=== PATIENT | male | born 1975 ===

== ENCOUNTER 2019-04-02 05:17 | Day surgery (SDC) | payer OTHER ==
[~2019-04-02] VITALS: Ht 167.6 cm; Wt 95.3 kg
[2019-04-02] VITALS (13 sets, daily range): BP systolic 93–134; BP diastolic 56–92
[2019-04-02] MEDS ORDERED: ENALAPRIL MALEA20 MG ORAL (06:18)
[2019-04-02] MEDS ORDERED: METFORMIN HCL1000 M1 ORAL (06:18)
[2019-04-02] MEDS ORDERED: ceFAZolin sod 1 GM in NS 55 ML IVPB ONE (07:00)
[2019-04-02] MEDS ORDERED: Bupivacaine w/Epi 0.5% 30ml Vial INJ ONE (07:15)
[2019-04-02] MEDS ORDERED: LR 1000ml 1,000 ML IVLG SCH (07:20)
--- NOTE | 2019-04-02 07:20 | Pre-Procedure Note/Attestation ---
Pre-Procedure Note/Attestation Complete Prior to Procedure Planned Procedure: right Procedure Narrative: Arthroscopy, Intr-Articular Surgery Right Knee Indications for Procedure Pre-Operative Diagnosis: Torn Medial Meniscus Attestation I attest that I discussed the nature of the procedure; its benefits; risks and complications; and alternatives (and the risks and benefits of such alternatives ), prior to the procedure, with the patient (or the patient's legal media sales representative). I attest that, if there was a reasonable possibility of needing a blood transfusion, the patient (or the patient's legal media sales representative) was given the [facility] standardized written summary, pursuant to the [place]un[place] Blood Safety Act ([place] Health and Safety Code # 1645, as amended). I attest that I re-evaluated the patient just prior to the surgery and that there has been no change in the patient's H&P, except as documented below: ELIZABETH LOUIE Apr 02, 2019 07:20
[2019-04-02] MEDS ORDERED: Sterile Water Irrig 1000ml IRRIG ONE (07:23)
[2019-04-02] MEDS ORDERED: Lidocaine 1% MPF 10mg/ml 5ml ONE (07:26)
[2019-04-02] MEDS ORDERED: fentaNYL 100 mcg/2 mL IV ONE (07:26)
[2019-04-02] MEDS ORDERED: Sodium Chloride 10ml vial INJ ONE (07:26)
[2019-04-02] MEDS ORDERED: Propofol 200mg/20ml IV ONE (07:26)
--- NOTE | 2019-04-02 07:26 | Anethesia Preoperative Eval ---
Anesthesia Pre-op PMH/ROS General Date of Evaluation: Apr 02, 2019 Time of Evaluation: 07:23 Anesthesiologist: Eugene ASA Score: ASA 3 Mallampati Score Class I : Soft palate, uvula, fauces, pillars visible Class II: Soft palate, uvula, fauces visible Class III: Soft palate, base of uvula visible Class IV: Only hard plate visible Mallampati Classification: Class III Surgeon: Mary Diagnosis: R Knee Pain Surgical Procedure: R Knee Athroscpy Family History: no anesthesia problems Allergies: Coded Allergies: No Known Allergies (Unverified , 04/01/19) Medications: see eMAR Patient NPO?: Yes Past Medical History Cardiovascular: Reports: HTN Endocrine: Reports: DM Other: obesity - BMI 35 Anesthesia Pre-op Phys. Exam Physician Exam Last Vital Signs Date Time Temp Pulse Resp B/P (MAP) Pulse Ox O2 Delivery O2 Flow Rate FiO2 04/02/19 06:06 Room Air 04/02/19 06:00 97.2 69 20 134/92 100 Constitutional: NAD Neurologic: CN 2-12 intact Cardiovascular: RRR Respiratory: CTA Gastrointestinal: S/NT/ND Airway Exam Mallampati Score: Class III MO: limited ROM: limited Teeth: intact Anesthesia Pre-op A/P Risk Assessment & Plan Assessment: ASA 3 Plan: GA, SED Status Change Before Surgery: No Pre-Antibiotics Dru Grams Ancef IV Given Within 1 Hr of Incision: Yes Time Given: 07:36 Steve Knight MD Apr 02, 2019 07:26
[2019-04-02] MEDS ORDERED: Acetaminophen (Non formulary) 100 ML IV ONE (07:30)
[2019-04-02] MEDS ORDERED: fentaNYL 100 mcg/2 mL IV PRN (07:30)
[2019-04-02] MEDS ORDERED: Hydromorphone 0.5mg/0.5ml inj IVP PRN (07:30)
[2019-04-02] MEDS ORDERED: HYDROcodone/Acetamin 7.5/325 tab ORAL PRN (07:30)
[2019-04-02] MEDS ORDERED: Midazolam 2mg/2ml Inj IVP PRN (07:30)
[2019-04-02] MEDS ORDERED: Meperidine 50mg/ml Inj(FOR RIGORS ONLY) IVP PRN (07:30)
[2019-04-02] MEDS ORDERED: Ketorolac 30mg Inj IV PRN ×2 (07:30)
[2019-04-02] MEDS ORDERED: DiphenhydrAMINE 50mg/ml Inj IVP PRN (07:30)
[2019-04-02] MEDS ORDERED: HYDROcodone/Acetamin 5/325 tab ORAL PRN (07:30)
[2019-04-02] MEDS ORDERED: oxyCODONE HCL/Acetaminophen 5/325mg ORAL PRN (07:30)
[2019-04-02] MEDS ORDERED: Labetalol 5mg/ml 20ml vial IV PRN (07:30)
[2019-04-02] MEDS ORDERED: LORazepam Inj 2mg/ml 1ml IV PRN (07:30)
[2019-04-02] MEDS ORDERED: Metoclopramide 10mg/2ml Inj IVP PRN (07:30)
[2019-04-02] MEDS ORDERED: Atropine Sulfate 0.4mg/ml inj IVP PRN (07:30)
[2019-04-02] MEDS ORDERED: NS Irrig 4000ml IRRIG ONE ×4 (07:54→08:23)
--- NOTE | 2019-04-02 08:45 | Brief Operative Note ---
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
--- NOTE | 2019-04-02 08:47 | Immediate Post-Op Evaluation ---
Immediate Post-Op Evalulation Immediate Post-Op Evalulation Procedure: R Knee Arthroscopy Date of Evaluation: Apr 02, 2019 Time of Evaluation: 08:59 IV Fluids: 800 LR Blood Products: 0 Estimated Blood Loss: 10 Urinary Output: 0 Blood Pressure Systolic: 102 Blood Pressure Diastolic: 64 Pulse Rate: 79 Respiratory Rate: 16 O2 Sat by Pulse Oximetry: 99 Temperature (Fahrenheit): 97.6 Pain Score (1-10): 2 Nausea: No Vomiting: No Complications 0 Patient Status: awake, reacts, patent, extubated, none Hydration Status: adequate Dru Grams Ancef IV Given Within 1 Hr of Incision: Yes Time Given: 07:36 Steve Knight MD Apr 02, 2019 08:47
--- NOTE | 2019-04-02 08:49 | 48 Hour Post Anesthesia Eval ---
Post Anesthesia Evaluation Procedure: R Knee Arthroscopy Date of Evaluation: Apr 02, 2019 Time of Evaluation: 11:06 Blood Pressure Systolic: 147 0: 89 Pulse Rate: 72 Respiratory Rate: 18 Temperature (Fahrenheit): 98.2 O2 Sat by Pulse Oximetry: 98 Airway: patent Nausea: No Vomiting: No Pain Intensity: 2 Hydration Status: adequate Cardiopulmonary Status: Stable Mental Status/LOC: patient returned to baseline Follow-up Care/Observations: 0 Post-Anesthesia Complications: 0 Follow-up care needed: ready to discharge Steve Knight MD Apr 02, 2019 08:49
--- NOTE | 2019-04-02 16:30 | Operative Note - Dictated ---
DATE OF OPERATION: 04/02/2019 SURGEON: Dwayne Hernandez M.D. ANESTHESIOLOGIST: Steve Knight M.D. PREOPERATIVE DIAGNOSIS: Medial meniscus tear, right knee, recurrent. POSTOPERATIVE DIAGNOSES: Multiplanar complex tear, posterior horn, medial meniscus, right knee, grade 1 chondromalacia medial femoral condyle, medial tibial plateau right knee. OPERATION: 1. Arthroscopy, arthroscopic partial medial meniscectomy. 2. Chondroplasty, medial femoral condyle and medial tibial plateau right knee. DESCRIPTION OF PROCEDURE: The patient was brought to the operating room and placed comfortably in the supine position on the operating table. After satisfactory induction of general endotracheal anesthesia, a tourniquet was placed at the proximal aspect of the right lower extremity. The extremity was then prepped and draped in the usual sterile fashion. Standard 1-cm vertical oblique arthroscopy portals were placed 1 cm medial and 1 cm lateral to the patellar tendon, 1 cm above the respective joint lines. A 60 mL of sterile normal saline was introduced into the knee and the medial suprapatellar outflow cannula was introduced. The arthroscope was placed through the lateral portal. The patellofemoral examination revealed normal tracking with no evidence of any medial synovial plica or loose body. Examination of the medial compartment revealed grade 1 chondromalacic changes at the medial femoral condyle and medial tibial plateau with a significant portion of the posterior horn and mid body of the medial meniscus having been previously excised. A complex multiplanar tear involving the peripheral remnant of the medial meniscus was noted at the junction of the posterior horn and mid zone, and was excised with a combination of straight and curved basket forceps. The resection was performed in such a way as to create a smooth transition to the remaining intact mid zone and entirely intact anterior horn of the meniscus. At the conclusion of the resection, the remaining meniscus was vigorously probed with no portion found to be loose or dislocatable into the joint. The compartment was then cleared of all meniscal debris using a motorized shaver and suction. A minimal chondroplasty was performed at the medial femoral condyle and medial tibial plateau, with no attempts to go deeper, for these grade 1 changes. The anterior and posterior cruciate ligaments were intact. The lateral tibial plateau, lateral femoral condyle, and lateral meniscus were without defects. No loose bodies were noted in the lateral gutter. The knee was thoroughly irrigated to remove any remaining meniscal debris. A tourniquet was not necessary for this procedure. The medial and lateral portals were closed with 3-0 nylon sutures, as well as the medial portal. A 15 mL of 0.5% Marcaine with epinephrine was instilled into the knee at the conclusion. A sterile Xeroform dressing and SWETHA stocking was applied at the conclusion of the procedure. Estimated blood loss was negligible. Sponge and needle counts at the conclusion were correct. The patient tolerated the procedure well and was returned to the recovery room in good condition. Dwayne Hernandez M.D. DR: EDUARDO JOB#: [id number] CC:
== END 2019-04-02 11:25 | disposition home or self-care (01) ==
LOC: SUR 05:17
DX: S83.231A Complex tear of medial meniscus, current injury, right knee, initial encounter (principal); I10 Essential (primary) hypertension; E11.9 Type 2 diabetes mellitus without complications; E66.9 Obesity, unspecified; Z68.33 Body mass index [BMI] 33.0-33.9, adult; X58.XXXA Exposure to other specified factors, initial encounter; Y92.9 Unspecified place or not applicable
CPT/HCPCS: 29881; 82962; J0690; J1885; J2175; J2250; J2405; J2704; J2765; J3010; 94003; 94150